=== PATIENT | female | born 1975 | race Caucasian/White ===

== ENCOUNTER → 2022-02-16 | Emergency (ER) | payer MEDICARE, MEDICAID ==
[~2022-02-16] VITALS: Ht 175.3 cm; Wt 112.0 kg
[~2022-02-16] MED LIST: BACDST PO; DIVA500T4; DULO60CA; LORA-655; TRAZ300T13; ZIPR80CA37
[2022-02-16 13:25] VITALS: BP 130/71
[2022-02-16 14:07] LABS: Urine Bacteria MANY /hpf (None Seen); Urine Blood Negative /uL (Negative); Urine Specific Gravity 1.013 (1.001-1.035); Urine WBC 91 /hpf (0 - 5); Urine WBC Clumps PRESENT /hpf (None Seen)
== END | disposition left against medical advice (07) ==
LOC: ER 12:56
DX: N39.0 Urinary tract infection, site not specified (principal); H60.92 Unspecified otitis externa, left ear; F17.210 Nicotine dependence, cigarettes, uncomplicated; Z90.49 Acquired absence of other specified parts of digestive tract; Z32.02 Encounter for pregnancy test, result negative
CPT/HCPCS: 81001; 81025; 82962

== ENCOUNTER 2022-04-19 10:38 | Emergency (ER) | payer MEDICARE, MEDICAID ==
[~2022-04-19] VITALS: Ht 175.3 cm; Wt 119.0 kg
[2022-04-19 11:01] VITALS: BP 169/96
== END 2022-04-19 10:46 | disposition left against medical advice (07) ==
LOC: ER 10:38
DX: M25.571 Pain in right ankle and joints of right foot (principal); Z53.21 Procedure and treatment not carried out due to patient leaving prior to being seen by health care provider
CPT/HCPCS: 73610

== ENCOUNTER 2022-06-10 09:30 | Emergency (ER) | payer MEDICARE, MEDICAID ==
[~2022-06-10] VITALS: Ht 175.3 cm; Wt 123.3 kg
[2022-06-10 10:30] VITALS: BP 125/70
[2022-06-10] MEDS ORDERED: HYDROcodone-ACET 10/325MG TAB PO ONE (10:45)
[2022-06-10] MEDS ORDERED: CEPH-510 PO (10:47)
[2022-06-10] MEDS ORDERED: HUR60 MT (10:47)
== END 2022-06-10 11:24 | disposition home or self-care (01) ==
LOC: ER 09:33
DX: K04.7 Periapical abscess without sinus (principal); F17.210 Nicotine dependence, cigarettes, uncomplicated; Z90.49 Acquired absence of other specified parts of digestive tract; Z79.899 Other long term (current) drug therapy; Z88.1 Allergy status to other antibiotic agents; Z88.8 Allergy status to other drugs, medicaments and biological substances

== ENCOUNTER 2022-08-03 08:23 | Emergency (ER) | payer MEDICARE, MEDICAID ==
[~2022-08-03] VITALS: Ht 175.3 cm; Wt 122.4 kg
[~2022-08-03 08:23] MED LIST changes: +CEPH-510 PO; +HUR60 MT
[2022-08-03 09:30] VITALS: BP 144/90
[2022-08-03] MEDS ORDERED: BACL10TA PO (09:43)
[2022-08-03] MEDS ORDERED: IBUP800T27 PO (09:43)
== END 2022-08-03 09:48 | disposition home or self-care (01) ==
LOC: ER 08:23
DX: S39.012A Strain of muscle, fascia and tendon of lower back, initial encounter (principal); F17.210 Nicotine dependence, cigarettes, uncomplicated; Z90.49 Acquired absence of other specified parts of digestive tract; Z88.6 Allergy status to analgesic agent; X50.0XXA Overexertion from strenuous movement or load, initial encounter; Y93.89 Activity, other specified; Y92.89 Other specified places as the place of occurrence of the external cause; Y99.8 Other external cause status

== ENCOUNTER 2023-03-10 08:13 | Emergency (ER) | payer MEDICARE, MEDICAID ==
[~2023-03-10] VITALS: Ht 175.3 cm; Wt 122.7 kg
[~2023-03-10 08:13] MED LIST changes: +BACL10TA PO; +DIVA-93; -DIVA500T4; -DULO60CA; +DULO60CA41; +IBUP-1456 PO
[2023-03-10 08:37] VITALS: BP 137/93; PULSE 102; RESP 18; TEMP 97.7; O2SAT 98
[2023-03-10] MEDS ORDERED: ZOLP10TA PO (09:43)
[2023-03-10] MEDS ORDERED: IBUP-1456 PO (09:43)
== END 2023-03-10 09:49 | disposition home or self-care (01) ==
LOC: ER 08:13
DX: M70.62 Trochanteric bursitis, left hip (principal); M16.12 Unilateral primary osteoarthritis, left hip; G47.00 Insomnia, unspecified; F17.210 Nicotine dependence, cigarettes, uncomplicated; Z88.6 Allergy status to analgesic agent; Z90.49 Acquired absence of other specified parts of digestive tract; Y93.89 Activity, other specified
CPT/HCPCS: 73502

== ENCOUNTER 2023-04-28 12:49 | Emergency (ER) | payer MEDICARE, MEDICAID ==
[~2023-04-28] VITALS: Ht 175.3 cm; Wt 122.9 kg
[~2023-04-28 12:49] MED LIST changes: +ZOLP10TA PO
[2023-04-28 13:13] VITALS: BP 111/65; PULSE 89; RESP 18; O2SAT 97
[2023-04-28 13:55] LABS: Basophils # (auto) 0.1 10 ^3/uL (0-0.2); Basophils % (auto) 1.5 % (0.0-2.0); Eosinophils # (auto) 0.2 10 ^3/uL (0-0.8); Eosinophils % (auto) 2.3 % (0.0-7.0); Hematocrit 41.9 % (36.0-46.0); Hemoglobin 13.5 g/dL (12.2-16.2); Lymphocytes # (auto) 2.4 10 ^3/uL (0.4-5.4); Mean Corpuscular Hemoglobin 28.3 pg (28.0-32.0); Mean Corpuscular Hgb Conc. 32.3 g/dL (32.0-36.0); Mean Corpuscular Volume 87.7 fL (80.0-100.0); Monocytes # (auto) 0.5 10 ^3/uL (0-1.3); Neutrophils # (auto) 6.7 10 ^3/uL (1.6-8.6); Neutrophils % (auto) 67.2 % (37.0-80.0); Red Blood Cells 4.77 10^6/uL (4.0-5.20); Red Cell Distribution Width 14.1 % (11.8-14.3); White Blood Cell 9.9 10^3/uL (4.4-10.8)
[2023-04-28 14:14] LABS: Chloride 107 mmol/L (98-107); Sodium 136 mmol/L (136-145)
[2023-04-28 14:15] LABS: Anion Gap 8 (5-15); Calcium 9.3 mg/dL (8.5-10.1); Carbon Dioxide 21 mmol/L (20-30)
[2023-04-28 14:20] LABS: BUN/Creatinine Ratio 16.5 (10.0-20.0); Blood Urea Nitrogen 13 mg/dL (9-23); Glucose 144 mg/dL (74-106)
[2023-04-28 15:20] LABS: Urine Bacteria NONE SEEN /hpf (None Seen); Urine Blood Negative /uL (Negative); Urine Clarity Clear (Clear); Urine Color Colorless (Yellow); Urine Protein, UAD Negative (Negative); Urine Specific Gravity 1.017 (1.001-1.035); Urine Urobilinogen Normal (Negative); Urine WBC <1 /hpf (0 - 5); Urine pH 5.5 (5.0-8.0)
[2023-04-28] MEDS ORDERED: DICL50TA2 PO (15:54)
== END 2023-04-28 17:32 | disposition home or self-care (01) ==
LOC: ER 12:49
DX: N83.201 Unspecified ovarian cyst, right side (principal); R10.2 Pelvic and perineal pain; F32.9 Major depressive disorder, single episode, unspecified; E11.9 Type 2 diabetes mellitus without complications; F17.210 Nicotine dependence, cigarettes, uncomplicated; F12.10 Cannabis abuse, uncomplicated; Z90.49 Acquired absence of other specified parts of digestive tract; Z88.6 Allergy status to analgesic agent
CPT/HCPCS: 36415; 76830; 76856; 80048; 81001; 84702; 85025

== ENCOUNTER 2023-05-11 16:38 | Emergency (ER) | payer MEDICARE, MEDICAID ==
[~2023-05-11] VITALS: Ht 175.3 cm; Wt 123.9 kg
[~2023-05-11 16:38] MED LIST changes: +DICL50TA2 PO
[2023-05-11] MEDS ORDERED: traMADol HCL 50 MG TAB PO ONE (17:30)
[2023-05-11 18:06] LABS: Basophils # (auto) 0 10 ^3/uL (0-0.2); Basophils % (auto) 0.3 % (0.0-2.0); Eosinophils # (auto) 0.3 10 ^3/uL (0-0.8); Eosinophils % (auto) 2.7 % (0.0-7.0); Hematocrit 43.8 % (36.0-46.0); Hemoglobin 13.7 g/dL (12.2-16.2); Lymphocytes # (auto) 3.7 10 ^3/uL (0.4-5.4); Lymphocytes % (auto) 29.9 % (10.0-50.0); Mean Corpuscular Hemoglobin 28.3 pg (28.0-32.0); Mean Corpuscular Hgb Conc. 31.4 g/dL (32.0-36.0); Monocytes # (auto) 0.6 10 ^3/uL (0-1.3); Monocytes % (auto) 4.8 % (0.0-12.0); Neutrophils # (auto) 7.7 10 ^3/uL (1.6-8.6); Neutrophils % (auto) 62.3 % (37.0-80.0); Red Blood Cells 4.86 10^6/uL (4.0-5.20); Red Cell Distribution Width 14.2 % (11.8-14.3); White Blood Cell 12.4 10^3/uL (4.4-10.8)
[2023-05-11 18:11] LABS: Urine Bacteria MOD /hpf (None Seen); Urine Blood TRACE /uL (Negative); Urine Clarity HAZY (Clear); Urine Color Colorless (Yellow); Urine Protein, UAD Negative (Negative); Urine Specific Gravity 1.014 (1.001-1.035); Urine Urobilinogen Normal (Negative); Urine WBC 2 /hpf (0 - 5); Urine pH 6.5 (5.0-8.0)
[2023-05-11 18:17] LABS: Chloride 105 mmol/L (98-107); Potassium 3.7 mmol/L (3.5-5.1); Sodium 134 mmol/L (136-145)
[2023-05-11 18:18] LABS: Anion Gap 8 (5-15); Calcium 9.4 mg/dL (8.5-10.1); Carbon Dioxide 21 mmol/L (20-30)
[2023-05-11 18:23] LABS: BUN/Creatinine Ratio 11.4 (10.0-20.0); Blood Urea Nitrogen 8 mg/dL (9-23); Glucose 148 mg/dL (74-106)
[2023-05-11 18:50] VITALS: BP 139/86; PULSE 92; RESP 18; TEMP 98.1; O2SAT 95
[2023-05-11] MEDS ORDERED: ZOFR4T PO (20:12)
[2023-05-11] MEDS ORDERED: HYDR-4902 PO (20:12)
== END 2023-05-11 20:17 | disposition home or self-care (01) ==
LOC: ER 16:38
DX: R10.2 Pelvic and perineal pain (principal); N83.201 Unspecified ovarian cyst, right side; E11.9 Type 2 diabetes mellitus without complications; F17.210 Nicotine dependence, cigarettes, uncomplicated; F12.10 Cannabis abuse, uncomplicated; D72.829 Elevated white blood cell count, unspecified; Z90.49 Acquired absence of other specified parts of digestive tract; Z88.6 Allergy status to analgesic agent
CPT/HCPCS: 36415; 74176; 80048; 81001; 85025

== ENCOUNTER 2023-07-08 08:13 | Emergency (ER) | payer MEDICARE, MEDICAID ==
[~2023-07-08] VITALS: Ht 175.3 cm; Wt 124.3 kg
[~2023-07-08 08:13] MED LIST changes: +HYDR-4902 PO; +ZOFR4T PO
[2023-07-08 09:28] VITALS: BP 160/85; PULSE 91; RESP 16; TEMP 96.1; O2SAT 97
[2023-07-08] MEDS ORDERED: MUPI2OIN2 EX (09:28)
[2023-07-08] MEDS ORDERED: DOXY150C4 PO (09:28)
[2023-07-08] MEDS: DOXYCYCLINE 100 MG TAB/CAP PO ONE (09:33)
[2023-07-08] MEDS: SULFAMETHOX W/TRIMETH(800/160MG) DS TAB PO ONE (09:34)
[2023-07-08] MEDS: NEOMYCIN-BACITRACIN-POLYM UNITDOSE PKG TOP OINT TOP ONE (09:43)
== END 2023-07-08 09:43 | disposition home or self-care (01) ==
LOC: ER 08:13
DX: L60.0 Ingrowing nail (principal); E11.9 Type 2 diabetes mellitus without complications; E03.9 Hypothyroidism, unspecified; F17.210 Nicotine dependence, cigarettes, uncomplicated; Z90.49 Acquired absence of other specified parts of digestive tract; Z79.1 Long term (current) use of non-steroidal anti-inflammatories (NSAID); Z79.899 Other long term (current) drug therapy; Z79.2 Long term (current) use of antibiotics; Z88.1 Allergy status to other antibiotic agents; Z88.0 Allergy status to penicillin; Z88.8 Allergy status to other drugs, medicaments and biological substances

== ENCOUNTER 2023-07-17 14:25 | Emergency (ER) | payer MEDICARE, MEDICAID ==
[~2023-07-17] VITALS: Ht 177.8 cm; Wt 122.7 kg
[~2023-07-17 14:25] MED LIST changes: +DOXY150C6 PO; +MUPI2OIN2 EX; -ZIPR80CA37; +ZIPR80CA43
[2023-07-17 14:32] VITALS: BP 147/94; RESP 18; O2SAT 95
[2023-07-17 14:33] VITALS: PULSE 80
[2023-07-17 15:22] LABS: Basophils # (auto) 0.1 10 ^3/uL (0-0.2); Basophils % (auto) 0.7 % (0.0-2.0); Eosinophils # (auto) 0.3 10 ^3/uL (0-0.8); Eosinophils % (auto) 3.2 % (0.0-7.0); Hematocrit 41.8 % (36.0-46.0); Hemoglobin 13.6 g/dL (12.2-16.2); Lymphocytes # (auto) 3.3 10 ^3/uL (0.4-5.4); Lymphocytes % (auto) 35.8 % (10.0-50.0); Mean Corpuscular Hemoglobin 28.6 pg (28.0-32.0); Mean Corpuscular Hgb Conc. 32.5 g/dL (32.0-36.0); Mean Corpuscular Volume 88.1 fL (80.0-100.0); Monocytes # (auto) 0.5 10 ^3/uL (0-1.3); Monocytes % (auto) 5.3 % (0.0-12.0); Nucleated Red Blood Cells % 0.1 %; Red Blood Cells 4.75 10^6/uL (4.0-5.20); White Blood Cell 9.2 10^3/uL (4.4-10.8)
[2023-07-17 15:41] LABS: Alanine Aminotransferase 67 U/L (7-40); Albumin 4.4 g/dL (3.2-4.8); Alkaline Phosphatase 91 U/L (46-116); Anion Gap 6 (5-15); Aspartate Aminotransferase 46 U/L (13-40); BUN/Creatinine Ratio 19.5 (10.0-20.0); Blood Urea Nitrogen 17 mg/dL (9-23); Calcium 9.5 mg/dL (8.5-10.1); Carbon Dioxide 23 mmol/L (20-30); Chloride 109 mmol/L (98-107); Glucose 148 mg/dL (74-106); Potassium 3.7 mmol/L (3.5-5.1); Sodium 138 mmol/L (136-145)
[2023-07-17 15:42] LABS: Bilirubin, Total 0.2 mg/dL (0.2-1.0); Total Protein 6.7 g/dL (5.7-8.2)
[2023-07-17] MEDS ORDERED: levoFLOXacin 250 MG TAB PO ONE (19:30)
[2023-07-17] MEDS: LORazepam 0.5 MG TAB PO ONE (20:01)
== END 2023-07-17 20:03 | disposition home or self-care (01) ==
LOC: EDBD 14:25 → ER 14:25
DX: R07.2 Precordial pain (principal); F41.9 Anxiety disorder, unspecified; F17.210 Nicotine dependence, cigarettes, uncomplicated; F12.10 Cannabis abuse, uncomplicated; E11.9 Type 2 diabetes mellitus without complications; F32.9 Major depressive disorder, single episode, unspecified; E03.9 Hypothyroidism, unspecified; Z79.899 Other long term (current) drug therapy; Z90.49 Acquired absence of other specified parts of digestive tract; Z88.6 Allergy status to analgesic agent; Z88.5 Allergy status to narcotic agent; Z88.8 Allergy status to other drugs, medicaments and biological substances
CPT/HCPCS: 36415; 80053; 84484; 85025; 93005